=== PATIENT | female | born 1985 ===

== ENCOUNTER 2018-06-26 19:20 | Emergency (ER) | payer BC ==
[2018-06-26 19:27] VITALS: BP 98/51
--- NOTE | 2018-06-26 19:45 | UC ---
Abdominal Pain Female HPI - HPI Summary HPI Summary: fleeting stabs of mid abdomen pain---no nausea vomiting diarrhea or fever is hungry and has been able to eat---appears in no distress - History of Current Complaint Chief Complaint: UCAbdominalPain Stated Complaint: ABD PAIN Time Seen by Provider: 06/26/18 19:38 Hx Obtained From: Patient Hx Last Menstrual Period: 2 WEEKS AGO ?: No Onset/Duration: Sudden Onset Timing: Intermittent Episodes Lasting: - fleeting stabbing pain Pain Intensity: 0 Pain Scale Used: 0-10 Numeric Location: Discrete At: RUQ, Epigastric Radiates: No Character: Sharp Aggravating Factor(s): Nothing Alleviating Factor(s): Nothing Associated Signs and Symptoms: Positive: Negative Allergies/Adverse Reactions: Allergies Allergy/AdvReac Type Severity Reaction Status Date / Time Penicillins Allergy Hives Verified 06/26/18 19:27 Home Medications: Home Medications Amitriptyline TAB* [Elavil TAB*] 5 mg PO DAILY 06/26/18 [History Confirmed 06/26] L. Acidophilus/L. Rhamnosus [Probiotic 15 Billion Cell Cap] 1 cap PO DAILY 06/26 [History Confirmed 06/26/18] PMH/Surg Hx/FS Hx/Imm Hx Previously Healthy: Yes - IBS? - Surgical History Surgical History: None - Family History Known Family History: Positive: None - Social History Occupation: Employed Full-time Lives: With Family Alcohol Use: Occasionally Substance Use Type: None Smoking Status (MU): Never Smoked Tobacco Review of Systems All Other Systems Reviewed And Are Negative: Yes Constitutional: Positive: Negative Skin: Positive: Negative Eyes: Positive: Negative ENT: Positive: Negative Respiratory: Positive: Negative Cardiovascular: Positive: Negative Gastrointestinal: Positive: Abdominal Pain - stabbing mid epigastic ruq pain Genitourinary: Positive: Negative Motor: Positive: Negative Neurovascular: Positive: Negative Musculoskeletal: Positive: Negative Neurological: Positive: Negative Psychological: Positive: Negative Is Patient Immunocompromised?: No Physical Exam Triage Information Reviewed: Yes Appearance: Well-Appearing, No Pain Distress, Well-Nourished Vital Signs: Initial Vital Signs Temp 97.9 F 06/26/18 19:21 Pulse 79 06/26/18 19:21 Resp 16 06/26/18 19:21 BP 98/51 06/26/18 19:21 Pulse Ox 100 06/26/18 19:21 Vital Signs Reviewed: Yes Eye Exam: Normal Eyes: Positive: Conjunctiva Clear ENT Exam: Normal ENT: Positive: Normal ENT inspection, Hearing grossly normal. Negative: Trismus , Muffled voice, Hoarse voice Dental Exam: Normal Neck exam: Normal Neck: Positive: Supple, Nontender Respiratory Exam: Normal Respiratory: Positive: Chest non-tender, No respiratory distress, No accessory muscle use Cardiovascular Exam: Normal Cardiovascular: Positive: RRR, No Murmur, Pulses Normal, Brisk Capillary Refill Abdominal Exam: Normal Abdomen Description: Positive: Nontender, No Organomegaly, Soft. Negative: CVA Tenderness (R), CVA Tenderness (L), Distended, Guarding, Hepatomegaly, McBurney' s Point Tenderness, Peritoneal Signs, Pulsatile Mass Bowel Sounds: Positive: Present Musculoskeletal Exam: Normal Musculoskeletal: Positive: Strength Intact, ROM Intact, No Edema Neurological Exam: Normal Neurological: Positive: Alert, Muscle Tone Normal Psychological Exam: Normal Skin Exam: Normal Abd Pain Female Course/Dx - Course Course Of Treatment: if pain worsens or fails to improve while in [place] go to ED for further evaluation otherwise follow with pcp in [place]---will rx antispasmodic and protonix--advised patient to stop new probiotic that she began a few days prior to symptoms starting - Differential Dx/Diagnosis Provider Diagnosis: Gastritis, Pain of upper abdomen Discharge - Sign-Out/Discharge Documenting (check all that apply): Patient Departure All imaging exams completed and their final reports reviewed: No Studies - Discharge Plan Condition: Stable Disposition: HOME Prescriptions: Dicyclomine CAP* [Bentyl CAP*] 10 mg PO TID PRN #30 cap PRN Reason: abdomen spasm Pantoprazole TAB * [Protonix TAB*] 40 mg PO DAILY #14 tab Patient Education Materials: Dicyclomine (By mouth), Pantoprazole (By mouth), Abdominal Pain (ED) Referrals: [facility] [Outside] Additional Instructions: To ED should symptoms worsen in any way---Follow with primary care doctor this week - Billing Disposition and Condition Condition: STABLE Disposition: Home
== END 2018-06-26 20:19 | disposition home or self-care (01) ==
LOC: UCEAST 19:20
DX: K29.70 Gastritis, unspecified, without bleeding (principal); R10.11 Right upper quadrant pain; R10.13 Epigastric pain; Z88.0 Allergy status to penicillin
CPT/HCPCS: 81003; 84702; 99202; G0463